=== PATIENT | male | born 1960 | race Caucasian/White ===

== ENCOUNTER 2017-10-16 17:45 | Emergency (ER) | payer BC ==
[~2017-10-16] VITALS: Ht 182.9 cm; Wt 131.1 kg
[~2017-10-16 17:45] MED LIST: ADULT LOW DOSE81 MG PO; AMLODIPINE BESY10 MG PO; BENTYL10 MG PO; CLARITIN10 M2 PO; CLONIDINE1 EAC1 TD; FENOFIBRATE145 MG PO; FUROSEMIDE40 MG PO; HUMALOG100 UNIT/2 SUB-Q; LANTUS100 UNITS/ SUB-Q; LOSARTAN POTAS100 MG PO; METFORMIN HCL1000 MG PO; METOPROLOL TAR100 MG PO; OMEPRAZOLE40 MG PO; PRAVASTATIN SOD20 MG PO; SPIRONOLACTONE25 MG PO; SULFAMETHOXAZO1 EAC1 PO; TOUJEO SOL300 UNIT/1 SQ
== END 2017-10-16 20:07 | disposition home or self-care (01) ==
LOC: ED 17:45
PROC: 3E1B78Z Irrigation of Ear using Irrigating Substance, Via Natural or Artificial Opening (ICD-10-PCS; principal; 2017-10-16)
PROC: 3E1B78Z Irrigation of Ear using Irrigating Substance, Via Natural or Artificial Opening (ICD-10-PCS; 2017-10-16)
DX: H61.23 Impacted cerumen, bilateral (principal); I10 Essential (primary) hypertension; E11.9 Type 2 diabetes mellitus without complications; E78.00 Pure hypercholesterolemia, unspecified; Z90.49 Acquired absence of other specified parts of digestive tract; Z88.1 Allergy status to other antibiotic agents; Z88.8 Allergy status to other drugs, medicaments and biological substances; Z79.899 Other long term (current) drug therapy; Z79.4 Long term (current) use of insulin; Z79.82 Long term (current) use of aspirin
CPT/HCPCS: 99281

== ENCOUNTER 2020-04-06 07:22 | Day surgery (SDC) | payer BC ==
[~2020-04-06] VITALS: Ht 182.9 cm; Wt 145.2 kg
[~2020-04-06 07:22] MED LIST changes: +ONE TOUCH VERI EAC MISC; +TRULICITY1.5 MG/0.5; +VITAMIN D34000 UNIT PO; +[UNRECOGNIZED DRUG - SUPPLY]
[2020-04-06] MEDS ORDERED: OZEMPIC1 MG/0.75 SUB-Q (07:46)
--- NOTE | 2020-04-06 09:40 | NUR ---
04/06/20 0940 Emerita Green 0937- PT TO PACU IN SF POSITION. EYES OPEN. RESPONDING TO QUESTIONS APPROPRIATELY. REPORTS LOWER ABDOMINAL CRAMPING /. PT REPOSITIONED TO LL SIDE AND ENCOURAGED TO PASS JUJU. BREATHING EASY AND UNLABORED SP02 >90% ON 2L O2 VIA NC.
--- NOTE | 2020-04-06 14:51 | OR ---
[facility] [address] [place], [place] [address] Signed DATE OF OPERATION: 04/06/2020 SURGEON: Nidia Lee MD PREOPERATIVE DIAGNOSES: 1. History of multiple colon polyps, 2017. 2. Morbid obesity. POSTOPERATIVE DIAGNOSIS: Polyps x5 (excised) PROCEDURE: Total colonoscopy to cecum with cold morcellation polypectomy x2 and hot snare polypectomy x3. ANESTHESIA: Intravenous sedation fentanyl 100 mcg, Versed 7 mg. INDICATION: This morbidly obese 59-year-old white man is a patient of Dr. Houston. He is anticipating evaluation for bariatric surgery at [facility]. He underwent colonoscopy by me in 2016, at which time he was found to have multiple polyps. He is symptom free as regards to colon, but is here for surveillance colonoscopy. The risks of bleeding, infection, and perforation related to colonoscopy was reviewed with him. He understands and wished to proceed. FINDINGS: The prep was good. Complete colonoscopy was undertaken to the cecum without question. He had 5 polyps in total, one in the right colon and others in the left side. This included the proximal left colon x3 and a polyp at 60 cm x 1. DESCRIPTION OF PROCEDURE: The patient was brought into the endoscopy suite and placed in lateral decubitus position, given intravenous sedation to the point of slurred speech and nystagmus. Digital rectal examination was normal. An Olympus video colonoscope was passed in the rectum and manipulated throughout the colon noting few polyps on the left side intubation. The scope was ultimately advanced to the cecum. The ileocecal valve and appendiceal orifice were normal. Scope was withdrawn, a small polyp rather subtle in its appearance, but consistent with Electronically Signed By: NIDIA LEE MD 04/06/20 1451 PATIENT NAME: VIVIAN STEVENSON OPERATIVE REPORT DATE OF : 60 REPORT #: [id number] PHYSICIAN: NIDIA LEE MD PCP: EMIR HOUSTON MD REPORT IS CONFIDENTIAL AND NOT TO BE RELEASED WITHOUT AUTHORIZATION [facility] [address], [place] [address] Signed adenomatous polyp by a narrow band imaging in the mid ascending colon. This was excised with cold morcellation technique. The scope was further withdrawn to the proximal descending colon. There were 3 polyps. Two were excised with hot snare polypectomy technique. The other with cold morcellation technique. All were passed for pathology. Further withdrawal of scope showed another polyp at 60 cm, which was excised with hot snare technique. Further withdrawal showed no other abnormality. Retroflexed view was normal. Scope was removed and the patient was taken to the recovery room in good condition. CONCLUDING DIAGNOSIS: Polyps x5. PLAN: Recommend a repeat colonoscopy in 2 years, sooner if clinically indicated. He will return to the ongoing care of Dr. Houston otherwise. MD DERICK Jacob/CHESTER /[id number] cc: Emir Houston MD Copies: EMIR HOUSTON MD ~ Electronically Signed By: NIDIA LEE MD 04/06/20 1451 PATIENT NAME: VIVIAN STEVENSON OPERATIVE REPORT DATE OF : 60 REPORT #: [id number] PHYSICIAN: NIDIA LEE MD PCP: EMIR HOUSTON MD REPORT IS CONFIDENTIAL AND NOT TO BE RELEASED WITHOUT AUTHORIZATION
--- NOTE | 2020-04-11 13:58 | PATH ---
[facility] [address] [facility] [place], [place] [address] Signed SPECIMEN(S): A ASCENDING POLYP SPECIMEN(S): B PROXIMAL DESCENDING POLYP SPECIMEN(S): C PROXIMAL DESCENDING POLYP #2 SPECIMEN(S): D PROXIMAL DESCENDING POLYP #3 SPECIMEN(S): E COLON POLYP AT 60 CM SPECIMEN SOURCE: A. ASCENDING POLYP B. PROXIMAL DESCENDING POLYP C. PROXIMAL DESCENDING POLYP #2 D. PROXIMAL DESCENDING POLYP #3 E. COLON POLYP AT 60 CM CLINICAL HISTORY: History of polyps. Postop: Multiple polyps. MICROSCOPIC DESCRIPTION: Histologic sections of all submitted blocks are examined by light microscopy. These findings, together with the gross examination, support the pathologic diagnosis. FINAL PATHOLOGIC DIAGNOSIS: A. Colon, ascending, polyp, polypectomy: - Tubular adenoma. - Negative for high-grade dysplasia. B. Colon, proximal descending, polyp, polypectomy: - Tubular adenoma. - Negative for high-grade dysplasia or malignancy. C. Colon, proximal descending, polyp #2, polypectomy: - Tubular adenoma. - Negative for high-grade dysplasia. D. Colon, proximal descending, polyp #3, polypectomy: - Tubular adenoma. - Negative for high-grade dysplasia or malignancy. E. Colon, polyp at 60 cm, polypectomy: - Hyperplastic polyp. - Negative for dysplasia or malignancy. COMMENT: As part of [facility]' Quality Improvement Program, parts A and C of this case were reviewed by other members of our pathology staff. NAL:emb:C2NR PATIENT NAME: VIVIAN STEVENSON PATHOLOGY DATE OF : 60 REPORT #: [id number] PHYSICIAN: SUZAN CASTRO PCP: TRISTAN GIBSON MD REPORT IS CONFIDENTIAL AND NOT TO BE RELEASED WITHOUT AUTHORIZATION [facility] [address] [place], [place] [address] Signed GROSS DESCRIPTION: Five specimens are received in five containers, labeled "RC." A. The specimen, labeled "RC, 1," and designated on the requisition "ascending polyp," is received in formalin and consists of two dunlap soft tissue fragment(s) that measure 0.3 cm in greatest dimension. The specimen is entirely submitted in cassette (A1). B. The specimen, labeled "RC, 2," and designated on the requisition "proximal descending polyp," is received in formalin and consists of one dnulap soft tissue polypoid fragment that measures 0.9 cm in greatest dimension. The polyp is inked black, trisected, and specimen is entirely submitted in cassette (B1). C. The specimen, labeled "RC, 3," and designated on the requisition "proximal descending polyp #2," is received in formalin and consists of three dunlap soft tissue fragment(s) that measure 0.3 cm in greatest dimension. The specimen is entirely submitted in cassette (C1). D. The specimen, labeled "RC, 4," and designated on the requisition "proximal descending polyp #3," is received in formalin and consists of one dunlap soft tissue polypoid fragment that measures 0.5 cm in greatest dimension. The specimen is entirely submitted in cassette (D1). E. The specimen, labeled "RC, 5," and designated on the requisition "colon polyp at 60 cm," is received in formalin and consists of one dunlap-pink soft tissue polypoid fragment with possible vegetative matter that measures 0.4 cm in greatest dimension. The specimen is entirely submitted in cassette (E1). AT (under the direct supervision of a pathologist) The Gross Description was prepared using a voice recognition system. The report was reviewed for accuracy; however, sound-alike word errors, addition and/or deletions may occur. If there is any question about this report, please contact Client Services. PERFORMING LABORATORY: The technical component was performed by [facility] [address] (Manager Case Management: Amena Jimenez MD; CLIA# [id number]). Professional interpretation was performed by [facility], [address] [address] (CLIA# [id number]). Diagnostician: Daxa Chahal MD Pathologist Electronically Signed 04/11/2020 PATIENT NAME: VIVIAN STEVENSON MICHELE PATHOLOGY DATE OF : 60 REPORT #: [id number] PHYSICIAN: SUZAN CASTRO PCP: TRISTAN GIBSON MD REPORT IS CONFIDENTIAL AND NOT TO BE RELEASED WITHOUT AUTHORIZATION [facility] [address] [place], [place] [address] Signed Copies: ~ PATIENT NAME: VIVIAN STEVENSON MICHELE PATHOLOGY DATE OF : 60 REPORT #: [id number] PHYSICIAN: SUZAN PATHOLOGY PCP: TRISTAN GIBSON MD REPORT IS CONFIDENTIAL AND NOT TO BE RELEASED WITHOUT AUTHORIZATION
== END 2020-04-06 10:18 | disposition home or self-care (01) ==
LOC: OPS 07:22 → DS 07:22 → OPS 08:30 → DS 08:30 → OPS 10:18
PROVIDERS: Surgery
PROC: 0DBE8ZZ Excision of Large Intestine, Via Natural or Artificial Opening Endoscopic (ICD-10-PCS; 2020-04-06)
PROC: 0DBM8ZZ Excision of Descending Colon, Via Natural or Artificial Opening Endoscopic (ICD-10-PCS; 2020-04-06)
PROC: 0DBK8ZZ Excision of Ascending Colon, Via Natural or Artificial Opening Endoscopic (ICD-10-PCS; principal; 2020-04-06 08:30)
DX: Z12.11 Encounter for screening for malignant neoplasm of colon (principal); D12.2 Benign neoplasm of ascending colon; D12.4 Benign neoplasm of descending colon; I10 Essential (primary) hypertension; I25.2 Old myocardial infarction; E11.9 Type 2 diabetes mellitus without complications; G47.30 Sleep apnea, unspecified; E66.01 Morbid (severe) obesity due to excess calories; Z88.8 Allergy status to other drugs, medicaments and biological substances; Z79.899 Other long term (current) drug therapy; Z79.4 Long term (current) use of insulin; Z86.010 Personal history of colon polyps; Z68.41 Body mass index [BMI] 40.0-44.9, adult
CPT/HCPCS: 99153; G0500; J2250; J3010; J7121

== ENCOUNTER 2021-05-24 05:35 | Day surgery (SDC) | payer BC, MEDICARE ==
[~2021-05-24] VITALS: Ht 182.9 cm; Wt 99.0 kg
[~2021-05-24 05:35] MED LIST changes: +ALLER-TEC10 MG PO; +HUMULIN R500 UNIT/2 SUB-Q; +JARDIANCE25 MG PO; +MINOXIDIL10 MG PO; +OZEMPIC1 MG/0.71; +OZEMPIC1 MG/0.75 SUB-Q; +VENTOLIN HFA18 GM INH
[2021-05-24] MEDS ORDERED: DICLOFENAC SODI75 MG PO (07:48)
[2021-05-24] MEDS ORDERED: HYDROCODON-ACE1 EA10 PO (07:49)
--- NOTE | 2021-05-24 07:50 | NUR ---
05/24/21 0750 Elis Oliveira 0742 PATIENT ARRIVES TO PACU UNRESPONSIVE TO PAIN, ORAL AIRWAY IN PLACE. RESP EVEN AND UNLABORED, MASK AT 8 LITERS. 0744 PATIENT AWAKE ON/OFF, ORAL AIRWAY REMOVED. RESP EVEN AND UNLABORED, FOLLOWS COMMANDS TO DEEP BREATHE AND COUGH. MASK CONTINUED AT 8LITERS. 0746 PATIENT AWAKE, SITTING UP IN BED. RESP EVEN AND UNLABORED, MASK OFF. ROOM AIR SATS 90%. DENIES PAIN OR NAUSEA. ENCOURAGED PATIENT TO CONTINUE TO COUGH AND DEEP BREATHE.
--- NOTE | 2021-05-24 08:43 | NUR ---
PATIENT IS RESTING COMFORTABLEY IN BED. PATIENT DENIES PAIN. PATIENTS O2 SATS LOW 85%. PROVIDED PATIENT WITH AN IS. PATIENT HAS BEEN USING IS EFFECTIVELY WITH NOTED IMPROVEMENT IN O2 SATS IN THE 'S. PATIENTS DRESSING IS CLEAN, DRY, AND INTACT. PATIENT IS DRINKING WATER AND EATING APPLESAUCE AND CRACKERS. CALL LIGHT WITHIN REACH.
--- NOTE | 2021-05-24 09:45 | NUR ---
PATIENT RESTING COMFORTABLY IN BED. PATIENT STATES HIS PAIN IS 1/10. HIS DRESSING IS CLEAN, DRY, AND INTACT. PATIENTS O2 SATS IN LOW 90'S. ENCOURAGED HIM TO USE HIS IS. PATIENT HAS BEEN DRINKING WATER. CALL LIGHT WITHIN REACH
--- NOTE | 2021-05-24 10:19 | NUR ---
PATIENT AMBULATED TO BATHROOM WITH STANDBY. PATIENT HAD STEADY GATE AND TOLERATED WELL. PAIN 1/10 AND PATIENTS DRESSING WAS CLEAN, DRY, AND INTACT. PROVIDED PATIENT WITH DISCHARGE INSTRUCTIONS. PATIENT VERBALIZED UNDERSTANDING. ALL QUESTIONS ANSWERED. PROVIDED PATIENT WHEELCHAIR RIDE TO FRONT WERE PATIENTS WAS WAITING WITH THE CAR.
--- NOTE | 2021-06-26 14:07 | OR ---
[facility] [address] [place], [place] [address] Signed DATE OF OPERATION: 05/24/2021 SURGEON: Trista Stafford MD PREOPERATIVE DIAGNOSIS: Parameniscal cyst, right knee, arthritis. POSTOPERATIVE DIAGNOSIS: Parameniscal cyst, right knee, arthritis. PROCEDURE PERFORMED: Right knee arthroscopy with debridement of cyst and Synvisc injection. SALES REPRESENTATIVE DOOR TO DOOR: None. ANESTHESIA: General. BLOOD LOSS: Minimal. BRIEF HISTORY: Vivian is a 60-year-old gentleman, who has painful knee. He had undergone extensive nonoperative treatment. His MRI showed a parameniscal cyst with no earle meniscus tear. There was also some arthritis. Risks and benefits of arthroscopic debridement and injection of the Synvisc were discussed with him and he elected to proceed. DESCRIPTION OF PROCEDURE: Once consent was obtained, he was taken to the operating room. After adequate anesthesia, he was placed on operating room table. All downside pressure points were well padded. The left leg was flexed, abducted, and externally rotated in well-padded leg braun. The right was placed in a well-padded leg braun and the portal sites were pre-injected using 0.25% Marcaine with epinephrine under an alcohol prep. The leg was then prepped and draped in a standard sterile fashion. The standard inferolateral and superolateral portals were made and the scope was introduced in the knee. ARTHROSCOPIC FINDINGS: The patella was noted to be intact. The tracking was good. The lateral compartment was intact. ACL and PCL were intact. 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 The meniscus itself was intact and the tibia was intact. There was a rent in the capsule of the posteromedial corner that corresponded with the cyst on the MRI. We were able to open this rent with the ball-tipped rasp and get a little bit of fluid out of it. The rent was then abraded and debrided using the rasp followed by the shaver. Excellent bleeding was obtained in the region and was felt that this would seal the cyst. The scope was then withdrawn. Portals were closed with 3-0 nylon. The knee was injected with 60 mg of Toradol and 6 mL of Synvisc-One. He tolerated the procedure well. All sponge, needle, and instrument counts were correct. Trista Stafford MD BA/KATIEL /[id number] Copies: ~ Electronically Signed By: TRISTA STAFFORD MD 05/27/21 0701 Electronically Signed By: TRISTA STAFFORD MD 06/28/21 0709 PATIENT NAME: VIVIAN STEVENSON OPERATIVE REPORT DATE OF : 60 REPORT #: [id number] PHYSICIAN: TRISTA STAFFORD MD PCP: TRISTAN GIBSON MD REPORT IS CONFIDENTIAL AND NOT TO BE RELEASED WITHOUT AUTHORIZATION
== END 2021-05-24 10:00 | disposition home or self-care (01) ==
LOC: DS 05:35
PROVIDERS: ATTEND Specialist
PROC: 0SCC4ZZ Extirpation of Matter from Right Knee Joint, Percutaneous Endoscopic Approach (ICD-10-PCS; principal; 2021-05-24 06:45)
DX: M71.21 Synovial cyst of popliteal space [Baker], right knee (principal); M17.11 Unilateral primary osteoarthritis, right knee; M94.261 Chondromalacia, right knee; G47.30 Sleep apnea, unspecified; I10 Essential (primary) hypertension; J45.909 Unspecified asthma, uncomplicated; K21.9 Gastro-esophageal reflux disease without esophagitis; E11.9 Type 2 diabetes mellitus without complications; Z79.4 Long term (current) use of insulin; Z88.1 Allergy status to other antibiotic agents; Z88.8 Allergy status to other drugs, medicaments and biological substances
CPT/HCPCS: 01400; J1100; J1885; J2001; J2405; J2704; J3010; J7121; J7325

== ENCOUNTER 2022-06-05 10:43 | Day surgery (SDC) | payer BC, MEDICARE ==
[~2022-06-05] VITALS: Ht 2011.7 cm; Wt 136.0 kg
[~2022-06-05 10:43] MED LIST changes: +DICLOFENAC SODI75 MG PO; +HYDROCODON-ACE1 EA10 PO
--- NOTE | 2022-06-05 11:56 | NUR ---
06/05/22 1156 Elis Oliveira 1153 PATIENT ARRIVES TO PACU AWAKE BUT DROWSY. DENIES PAIN OR NAUSEA. RESP EVEN AND UNLABORED, NC AT 3 LITERS, SATS >95%.
--- NOTE | 2022-06-06 14:04 | OR ---
[facility] [address] [place], [place] [address] Signed DATE OF OPERATION: 06/05/2022 SURGEON: Nidia Lee MD PREOPERATIVE DIAGNOSIS: History of multiple polyps (tubular adenomas x5 in 2019). POSTOPERATIVE DIAGNOSIS: Polyps x1 at sigmoid. PROCEDURE: Total colonoscopy to the cecum with cold morcellation polypectomy x1. ANESTHESIA: Intravenous sedation; fentanyl 100 mcg and Versed 8 mg. INDICATION: This 61-year-old white man is a patient of Dr. Emir Houston and known to me from the past. He underwent colonoscopy on April 06, 2020, which showed 5 polyps, 4 of which were tubular adenomas. He has been recommended to have colonoscopy on that basis. He has no symptoms currently of bleeding, diarrhea or constipation and no family history of colon cancer. He understands the risk of colonoscopy, which include but are not limited to bleeding, infection, and perforation and wished to proceed. FINDINGS: The prep was excellent. Complete colonoscopy was undertaken to the cecum without question. He had one small polyp of the sigmoid, which was excised with cold morcellation technique. The remaining colon and rectum were normal. DESCRIPTION OF PROCEDURE: The patient was brought to the endoscopy suite and placed in the lateral decubitus position, given intravenous sedation to the point of slurred speech and nystagmus. Digital rectal examination was normal. An Olympus video colonoscope was passed in the rectum and manipulated throughout the colon ultimately intubating the cecum itself. The ileocecal valve and appendiceal orifice were normal. Scope was withdrawn from that point. Examination throughout showed no sign of abnormality until the sigmoid where a small adenomatous appearing polyp was noted, this was excised with cold morcellation technique completely. Further withdrawal of the scope showed no other abnormality including the rectum. The scope was Electronically Signed By: NIDIA LEE MD 06/06/22 1404 PATIENT NAME: VIVIAN STEVENSON OPERATIVE REPORT DATE OF : 60 REPORT #: [id number] PHYSICIAN: NIDIA LEE MD PCP: EMIR HOUSTON MD REPORT IS CONFIDENTIAL AND NOT TO BE RELEASED WITHOUT AUTHORIZATION [facility] [address] [place], [place] [address] Signed removed and the patient was taken to the recovery room in good condition. CONCLUDING DIAGNOSIS: Polyps x1. PLAN: Recommend repeat colonoscopy in 5 to 7 years, sooner if clinically indicated. He will return to the ongoing care of Dr. Houston otherwise. MD DERICK Jacob/MODL /[id number] cc: Emir Houston MD Copies: EMIR HOUSTON MD ~ Electronically Signed By: NIDIA LEE MD 06/06/22 1404 PATIENT NAME: VIVIAN STEVENSONN OPERATIVE REPORT DATE OF : 60 REPORT #: [id number] PHYSICIAN: NIDIA LEE MD PCP: EMIR HOUSTON MD REPORT IS CONFIDENTIAL AND NOT TO BE RELEASED WITHOUT AUTHORIZATION
--- NOTE | 2022-06-06 14:46 | PATH ---
[facility] [address] [place], [place] [address] Signed SPECIMEN(S): A SIGMOID POLYP SPECIMEN SOURCE: A. SIGMOID POLYP CLINICAL HISTORY: History tubular adenomas in 2019. Post op: Polyps x 1. Colonoscopy. FINAL PATHOLOGIC DIAGNOSIS: Sigmoid polyp: - Tubular adenoma (one fragment). - Hyperplastic polyp (one fragment). JVR:[facility]:C2NR MICROSCOPIC EXAMINATION: Histologic sections of all submitted blocks are examined by light microscopy. These findings, together with the gross examination, support the pathologic diagnosis. GROSS DESCRIPTION: The specimen, labeled "RC, sigmoid colon polyp," is received in formalin and consists of three dunlap soft tissue fragments, that measure 0.3 cm in greatest dimension. The specimen is entirely submitted in cassette (A1). JS (under the direct supervision of a pathologist) The Gross Description was prepared using a voice recognition system. The report was reviewed for accuracy; however, sound-alike word errors, addition and/or deletions may occur. If there is any question about this report, please contact Client Services. PERFORMING LABORATORY: The technical component was performed by [employer], [address] [place] [id number] (CLIA# [id number]). Professional interpretation was performed by [facility], [address] [place] [id number] (CLIA#: [id number]). Diagnostician: Sampson Nelson MD Pathologist Electronically Signed 06/06/2022 PATIENT NAME: VIVIAN STEVENSON PATHOLOGY DATE OF : 60 REPORT #: [id number] PHYSICIAN: SUZAN PATHOLOGY PCP: TRISTAN GIBSON MD REPORT IS CONFIDENTIAL AND NOT TO BE RELEASED WITHOUT AUTHORIZATION [address] [address] Signed Copies: ~ PATIENT NAME: VIVIAN STEVENSON PATHOLOGY DATE OF : 60 REPORT #: [id number] PHYSICIAN: SUZAN PATHOLOGY PCP: TRISTAN GIBSON MD REPORT IS CONFIDENTIAL AND NOT TO BE RELEASED WITHOUT AUTHORIZATION
== END 2022-06-05 14:15 | disposition home or self-care (01) ==
LOC: OPS 10:43 → DS 10:43 → OPS 12:00
PROVIDERS: ATTEND Surgery
PROC: 0DBN8ZX Excision of Sigmoid Colon, Via Natural or Artificial Opening Endoscopic, Diagnostic (ICD-10-PCS; principal; 2022-06-05 12:00)
DX: Z12.11 Encounter for screening for malignant neoplasm of colon (principal); D12.5 Benign neoplasm of sigmoid colon; I25.2 Old myocardial infarction; G47.30 Sleep apnea, unspecified; I10 Essential (primary) hypertension; E11.9 Type 2 diabetes mellitus without complications; Z88.1 Allergy status to other antibiotic agents; Z88.8 Allergy status to other drugs, medicaments and biological substances
CPT/HCPCS: 99153; G0500; J2250; J3010; J7121